=== PATIENT | male | born 1955 | race Caucasian/White ===

== ENCOUNTER → 2017-07-03 | Outpatient (CLI) | payer OTHER ==
[~2017-07-03] MED LIST: IBUPROFEN 800800 M1 PO; LIORESAL 10 MG10 MG PO; LIPITOR10 MG PO; MULTI-VITAMIN1 EAC5 PO; XANAX 0.25 MG0.25 MG PO
== END ==
LOC: M.RAD 13:53
DX: J15.8 Pneumonia due to other specified bacteria (principal)

== ENCOUNTER → 2017-10-15 | Outpatient (CLI) | payer OTHER ==
--- NOTE | 2017-11-13 13:42 | PAINCON ---
[address] [address] PAIN MANAGEMENT CONSULTATION Name: SHANA FRANCIS Room: [facility]#: [id number] Admission: 10/15/17 Attend Phys: Ana Taylor MD Discharge: Date of : 53 Report #: [id number] THIS REPORT FOR: //name// CC: Allan Taylor DATE OF SERVICE: 10/15/2017 FOLLOWUP HISTORY: The patient is a 62-year-old gentleman who has been seen in the pain clinic because of cervical radiculopathy. He has been followed by Dr. Chaka Graham. This is my first time visiting with him. He has had a history of upper extremity pain and paresthesia. He has pain in his neck in the left upper area and has noted greater than 50% improvement in pain with epidural steroid injections in the past. He has noticed a slow return of pain and discomfort. Overall today, his pain feels better. He does not feel that he needs a cervical epidural steroid injection and he elected to follow up on his appointment. He has pain in his left neck, left shoulder, and left elbow. As you may recall, the pain in the left area makes it somewhat difficult to perform activities of daily living. He states that he was stung about a week ago. After the sting, there was note of some rash on the left side of his neck. States that he followed up and a biopsy of this indicated that the patient had an outbreak of shingles. As you recall, he had shingles in the thoracic area in the past. He finds that today his pain is a 0/10. He was given a Medrol Dosepak to take in the interim. Overall, he feels this pain and discomfort and does not need that a treatment need today. ALLERGIES: SULFA. CURRENT MEDICATIONS: Alprazolam 0.25 mg daily, Lipitor 10 mg daily, ibuprofen 800 mg q. 8 hours p.r.n., multivitamin. The patient was taking baclofen 10 mg t.i.d. PAST MEDICAL HISTORY: Tonsillitis, herpes zoster outbreak. PAST SURGICAL HISTORY: Tonsillectomy; knee surgery in 1968, 1982, 2006; left ankle 1979, 1981; wisdom teeth 1972; finger release 2006; left hand surgery 2001; right hand surgery in 1997. SOCIAL HISTORY: He is retired. Denies use of tobacco. REVIEW OF SYSTEMS: Questionnaire in the chart indicate generally good health, fever, night sweats, awakens to urinate, joint pain, joint stiffness, muscle cramping, numbness and tingling sensation [place] [address] PAIN MANAGEMENT CONSULTATION Name: SHANA FRANCIS [id number] Admission: 10/15/17 Attend Phys: Ana Taylor MD Discharge: Date of : 53 Report #: [id number] IMAGING STUDIES: Imaging dated 06/10/2014 reveals C6-C7 broad-based neural foraminal disk herniation, moderate size contributing to severe left neural foraminal stenosis. Mild to moderate C3-C4, C4-C5, C5-C6 and central canal narrowing due to disk disease, small C4-C5 focal disk protrusion. MRI dated 09/24/2017, reveals: 1. C3-C4 degenerative loss of disk height, identified and small diffuse disk bulge and endplate osteophyte complex, contacting the ventral cord. Probable mild mass effect on the ventral cord suggested. Uncovertebral joint spurs cause approximately moderate bilateral foraminal narrowing. Thecal sac 0.8 cm AP. 4. C4-C5 disk height is maintained. Small diffuse posterior disk bulging identified. CSF space dorsal and ventral to the cord is effaced without marty mass effect on the cord. Foramen are not grossly narrowed. Thecal sac 0.7 cm AP. 5. C5-C6, mild degenerative loss of disk height identified. Minimal diffuse disk bulge identified. CSF space dorsal and ventral to the cord is effaced. Uncovertebral joint spurring caused by mild to moderate right foraminal narrowing with normal left foraminal appearance. Thecal sac 0.9 cm AP. 7. mild degenerative loss of disk height identified without significant appearing disk bulge. Uncovertebral joint spurring cause approximately moderate bilateral foraminal narrowing. Thecal sac 0.9 cm AP. 8. C7-T1 intervertebral disk, facet and foraminal appearance, normal. Thecal sac 1.1 cm AP. PAIN CLINIC ASSESSMENT: 1. The patient has some arthritic changes in his neck. He has not been treated for rheumatoid arthritis. 2. Height 5 feet 11 inches, weight 175 pounds, BMI is 25. 3. Vital signs: Blood pressure 121/72, heart rate 65, respiratory rate 16, room air saturation 97%, temperature 98. 4. Pain score 0/10. 5. Fall: In the last 3 months, the patient has not fallen in the last 3 months. 6. Anticoagulation: The patient is not being treated with anticoagulant. 7. Hypertension: The patient is not being treated for hypertension. 8. Risk assessment tool. 9. Functional assessment tool. 10. Recreational drug use: Denies use of recreational drugs. 11. Tobacco: Denies use of tobacco. 12. Alcohol: Occasional alcoholic beverages. PHYSICAL EXAMINATION: GENERAL: The patient is a well-developed, well-nourished white male. He appears his stated age. He is alert and oriented x 3. His affect is appropriate. [place] [address] PAIN MANAGEMENT CONSULTATION Name: SHANA FRANCIS Room: [facility]#: [id number] Admission: 10/15/17 Attend Phys: Ana Taylor MD Discharge: Date of : 53 Report #: [id number] HEENT: Normocephalic, atraumatic. Extraocular eye muscles intact. Sclerae nonicteric. Hearing within normal limits. Mucous membranes are moist. NECK: Some limitation in motion. HEART: Regular rate, S1, S2. LUNGS: Clear to auscultation without wheezing, rhonchi or rales. ABDOMEN: Nontender. MUSCULOSKELETAL: Without significant kyphosis, lordosis, or scoliosis. EXTREMITIES: Musculoskeletal strength in upper extremity is judged to be 5/5 with symmetry. Deep tendon reflexes +1 bilaterally. No significant complaint of sensory or dermatomal changes at this juncture. IMPRESSION: 1. History of cervical radiculopathy, improves with cervical epidural steroid injections in the past. 2. Cervical spondylosis with radicular symptoms by history. 3. Displacement of cervical intervertebral disk with radiculopathy. RECOMMENDATIONS: We discussed treatment options with the patient. At this juncture, the patient feels that things are going reasonably well. He had an outbreak of shingles. He took a Medrol Dosepak. He notes that things have improved as a result of that. He feels that his pain is 0/10 at this juncture. He will follow up in the future as needed. We would like to thank you for letting us participate in his care. We hope he continues to improve. <ELECTRONICALLY SIGNED> By: Ana Taylor MD 11/13/17 1342 [id number]. Hal Taylor MD /nt
== END ==
LOC: M.PC 02:14
DX: M54.2 Cervicalgia (principal); M25.512 Pain in left shoulder; M25.522 Pain in left elbow

== ENCOUNTER → 2017-11-26 | Outpatient (CLI) | payer OTHER ==
--- NOTE | 2017-11-28 15:18 | PAINCON ---
[address] [address] PAIN MANAGEMENT CONSULTATION Name: SHANA FRANCIS [facility] [id number] Admission: 11/26/17 Attend Phys: Ana Taylor MD Discharge: Date of : 53 Report #: [id number] THIS REPORT FOR: //name// CC: Allan Taylor DATE OF SERVICE: 11/26/2017 FOLLOWUP COMPLAINT: Here for cervical epidural steroid injection. FOLLOWUP HISTORY: The patient is a 62-year-old gentleman who has been seen and followed in the pain clinic because of cervical radiculopathy. He has undergone epidural steroid injection in the cervical area the past. These were performed by Dr. Chaka Graham. He has returned today indicating that his pain has increased. Rates it as a 6-7/10. He has been having pain, which radiates down into his left elbow. He has received greater than 50% improvement in his pain with epidural steroid injections in the past. Pain involves his left neck, left shoulder down into his elbow. He has noticed increasing problems with activities of daily living because of this discomfort. He has returned with hopes of proceeding with an cervical epidural steroid injection. ALLERGIES: SULFA. CURRENT MEDICATIONS: Alprazolam 0.25 mg daily, Lipitor 10 mg daily, ibuprofen 800 mg q. 8 hours p.r.n., multivitamins. The patient has taken baclofen 10 mg t.i.d. LABORATORY DATA: MRI on 09/24/2017, results indicate: 1. C4-C5 disk height is maintained. Small diffuse posterior disk bulging identified. CSF space; dorsal and ventral to the cord is effaced without marty mass effect on the cord. Foramen are not grossly narrowed. Thecal sac 0.7 cm AP. 2. C5-C6, mild degenerative loss of disk height identified. Minimal diffuse disk bulge identified. CSF space; dorsal and ventral to the cord is effaced. Uncovertebral joint spurring caused by [id number] right foraminal narrowing with normal left foraminal appearance. Thecal sac is 0.9 cm AP. 3. C7-T1, mild degenerative loss of disk height identified without significant bulging disk. Uncovertebral joint spurring causes approximately moderate bilateral foraminal narrowing. PAIN CLINIC ASSESSMENT: 1. The patient has some arthritic changes in his neck. 2. Height 5 feet 6 inches, weight 176 pounds, BMI is 24. 3. Vital signs: Blood pressure 121/70, heart rate 77, respiratory rate 16, room air saturation 95%, temperature 98.8. 4. Pain score 5-6/10[place] [address] PAIN MANAGEMENT CONSULTATION Name: SHANA FRANCIS Room: [facility]#: [id number] Admission: 11/26/17 Attend Phys: Ana Taylor MD Discharge: Date of : 53 Report #: [id number] 5. Fall history: The patient has not fallen in the last 3 months. 6. Anticoagulation. The patient is not being anticoagulated. 7. Hypertension. The patient is not being treated for hypertension. 8. Risk assessment tool. The patient has a low risk with opioid medication. 9. Functional assessment tool. 10. Recreational drug use: The patient denies use of recreational drugs. 11. Tobacco: The patient denies use of tobacco. 12. Alcohol: The patient occasionally drinks an alcoholic beverage weekly. PHYSICAL EXAMINATION: GENERAL: The patient is a well-developed, well-nourished white male. He appears his stated age. He is alert and oriented x 3. His affect is appropriate. His speech is fluent. HEENT: Normocephalic, atraumatic. Extraocular eye muscles intact. Sclerae nonicteric. Hearing within normal limits. Mucous membranes are moist. NECK: With some limitation in motion. HEART: Regular rate. S1, S2. LUNGS: Clear to auscultation without rhonchi, wheezing or rales. ABDOMEN: Nontender. MUSCULOSKELETAL: Without significant kyphosis, scoliosis or lordosis. EXTREMITIES: Musculoskeletal strength in the upper extremities judged to be 5/5. The patient has some pain and discomfort in the neck with pain radiating down into his left shoulder, arm and to his wrist. IMPRESSION: 1. History of cervical radiculopathy, improves with cervical epidural steroid injections by greater than 50%. 2. Cervical spondylosis with radicular symptoms by history. 3. Displacement of cervical intervertebral disk with radiculopathy. RECOMMENDATIONS: We discussed treatment options with the patient. Risks and benefits of a cervical epidural steroid injection were discussed. Possible complications of the procedure were reviewed. They include but are not limited to infection, increased muscle soreness, headache, bleeding, worsening of pain, no improvement in pain and the patient elects to proceed. PROCEDURE NOTE: The patient was placed in the prone position. Fluoroscopy was used to identify the C7-T1 interspace. This area had been sterilely prepped with Betadine and infiltrated with 0.25% bupivacaine. Total of 80 mg Depo-Medrol, 40 mg triamcinolone and 2 mL of 0.25% bupivacaine was injected. The patient tolerated the procedure well. There were no complications. He remained in the pain clinic for an appropriate amount of time. Total of 7 seconds fluoroscopy time was used. The patient's pain decreased to 1/10 at the time of discharge. There was no bleeding. A [place] [address] PAIN MANAGEMENT CONSULTATION Name: SHANA FRANCIS Room: [facility]#: [id number] Admission: 11/26/17 Attend Phys: Ana Taylor MD Discharge: Date of : 53 Report #: [id number] We would like to thank you for letting us participate in his care. We hope he continues to improve. <ELECTRONICALLY SIGNED> By: Ana Taylor MD 11/28/17 1518 [id number]. Hal Taylor MD /nt
== END | disposition home or self-care (01) ==
LOC: M.PC 04:59
DX: M50.10 Cervical disc disorder with radiculopathy, unspecified cervical region (principal); G89.29 Other chronic pain; M47.22 Other spondylosis with radiculopathy, cervical region; Z88.2 Allergy status to sulfonamides; Z79.899 Other long term (current) drug therapy; Z98.890 Other specified postprocedural states

== ENCOUNTER → 2018-01-03 | Outpatient (CLI) | payer OTHER | LOC: M.CT 07:56 | DX: Z13.6 Encounter for screening for cardiovascular disorders (principal) ==

== ENCOUNTER → 2019-01-14 | Outpatient (CLI) | payer OTHER ==
--- NOTE | 2019-01-15 08:46 | CARDNUC ---
[place] [address] CARDIAC NUCLEAR IMAGING REPORT Name: SHANA FRANCIS Room: [facility]#: [id number] Admission: 01/14/19 Attend Phys: Ara Figueroa Discharge: Date of : 53 Date of Service: 01/15/19 0846 Report #: [id number] THIS REPORT FOR: //name// APPROVED REPORT Imaging Protocol: Rest Tc-99m/Stress Tc-99m 1 day Study performed: 01/14/2019 11:18:52 Indication: Abnormal EKG, Chest pain Patient Location: Out-Patient Stress Tech: Silke Tang Stress Nurse: Carmenza Maya RN NM Tech:ALON Leong Ht: 5 ft 11 in Wt: 175 lbs BSA: 1.99 m2 BMI: 24.40 Medical History Medical History: hyperlipidemia Medications: lipitor Allergies: sulfa, prednisone Cardiac Risk Factors: age, hyperlipidemia, family hx Exercise History: Physically active Resting Data Rest SPECT myocardial perfusion imaging was performed in supine position 30 minutes following the intravenous injection of 10.8 mCi of Tc-99m Sestamibi. Time of rest injection: 1000 Date: 01/14/2019 The images were gated to evaluate regional wall motion and calculate left ventricular ejection fraction. Administration Route: IV Administration Site: Right Hand Exercise Stress At peak stress, the patient was injected intravenously with 34.5mCi of Tc-99m Sestamibi. Time of stress injection: 1120 Date: 01/14/2019 Administration Route: IV Administration Site: Right Hand Gated Stress SPECT was performed 30 minutes after stress injection. The images were gated to evaluate regional wall motion and calculate left ventricular ejection fraction. [place] [address] CARDIAC NUCLEAR IMAGING REPORT Name: SHANA FRANCIS Room: [facility]#: [id number] Admission: 01/14/19 Attend Phys: Ara Figueroa Discharge: Date of : 53 Date of Service: 01/15/19 0846 Report #: [id number] Stress Test Details Stress Test: Exercise stress testing was performed using a Tim protocol. HR Max Heart Rate (APMHR): 156 bpm Resting HR: 68 bpm Target HR (85% APMHR): 132 bpm Max HR Achieved: 150 bpm % of APMHR: 96 Recovery HR: 76 bpm HR response to stress: Normal HR response to stress BP Resting BP: 160/93 mmHg Max BP: 258/112 mmHg Recovery BP: 168/92 mmHg BP response to stress: Abnormal hypertensive response to stress. ECG Resting ECG: Sinus Rhythm Stress ECG: Sinus Tachycardia ST Change: Upsloping ST depression Maximum ST Deviation: 1 mm Arrhythmia: VPC's Recovery ECG: Sinus Rhythm Recovery ST Change: Upsloping ST depression Recovery ST Deviation: 0.5 mm Recovery Arrhythmia: VPC's Clinical Reason for Termination: ST changes, high systolic bp Exercise duration: 5.0 min sec Exercise capacity: 7.03 METs Functional Aerobic Impairment 99% Tolerated standard Tim protocol exercise without significant cardiac symptoms. The patient had a hypertensive response to exercise. Nurse Comments pt had significantst depression and elevated systolic bp. only allowed minimal time on treadmill to complete test Stress ECG Conclusion The baseline EKG shows sinus rhythm without significant ST or T wave abnormality. EKGs obtained during and post exercise showed sinus rhythm and sinus tachycardia with [address] [place] [address] CARDIAC NUCLEAR IMAGING REPORT Name: SHANA FRANCIS Room: [facility]#: [id number] Admission: 01/14/19 Attend Phys: Ara Figueroa Discharge: Date of : 53 Date of Service: 01/15/19 0846 Report #: [id number] depression that resolved promptly in recovery. There are occasional premature ventricular contractions that were unifocal during and post exercise. Study Quality Study: Good Artifact: No artifact Study Data At rest, the left ventricular ejection fraction was 73%.. Post stress, the left ventricular ejection was 64%.. TID = 1.01. Perfusion Myocardial images show uniform uptake of the radioisotope throughout the myocardium with no defect to suggest infarct or ischemia. Wall Motion Normal left ventricular wall motion. Nuclear Conclusion ECG Findings: equivocal Clinical Findings: negative for ischemia Nuclear Findings: negative for ischemia Exercise Capacity: fair Left Ventricular Function: normal Risk Study: low Myocardial perfusion images show no defect to suggest infarct or ischemia. Left ventricular systolic function is normal on gated studies. This is a low risk study. EKG changes noted were likely due to hypertensive response to exercise. <Conclusion> The baseline EKG shows sinus rhythm without significant ST or T wave abnormality. EKGs obtained during and post exercise showed sinus rhythm and sinus tachycardia with [address] segment depression that resolved promptly in recovery. There are occasional premature ventricular contractions that were unifocal during and post exercise. <ELECTRONICALLY SIGNED> By: Jey Pfeiffer MD, FACC 01/15/1947 5 5 Jey Pfeiffer MD, FACC /INF
== END ==
LOC: M.NUC 01-07 12:18
DX: R07.89 Other chest pain (principal); R94.31 Abnormal electrocardiogram [ECG] [EKG]; Z82.49 Family history of ischemic heart disease and other diseases of the circulatory system